=== PATIENT | male | born 1985 | race Caucasian/White ===

== ENCOUNTER 2021-04-05 00:30 | Emergency (ER) | payer SELFPAY ==
[2021-04-05 01:41] LABS: #Basophils 0.1 thou/uL (0.0-0.2); #Eosinphils 0.1 thou/uL (0.0-0.7); #Lymphocytes 2.8 thou/uL (1.20-3.40); #Monocytes 1.3 thou/uL (0.11-0.59); #Neutrophils 8.1 thou/uL (1.40-6.50); %Basophils 0.8 % (0.0-1.0); %Lymphocytes 22.5 % (21.0-51.0); %Monocytes 10.6 % (0.0-10.0); %Neutrophils 65.1 % (42.0-75.0); Hemoglobin 13.6 g/dL (14.0-18.0); Mean Corpuscular HGB CONC 32.6 g/dL (32.0-36.0); Mean Corpuscular Hemoglobin 28.9 pg (27.0-31.0); Mean Corpuscular Volume 88.7 fL (78.0-98.0); Mean Platelet Volume 6.9 fL (7.4-10.4); Platelet Count 358 thou/uL (130-400); Red Blood Cell (RBC) Count 4.71 mill/uL (4.70-6.10); White Blood Cell (WBC) Count 12.5 thou/uL (4.8-10.8)
[2021-04-05 01:59] LABS: ALT (SGPT) 24 U/L (8-55); AST (SGOT) 26 U/L (5-34); Albumin 4.6 g/dL (3.5-5.0); Alkaline Phosphatase 75 U/L (40-110); Anion Gap 17 mmol/L (10-20); BUN (Urea Nitrogen) 16 mg/dL (8.9-20.6); Bilirubin, Total 0.6 mg/dL (0.2-1.2); CK (CPK) 480 U/L (30-200); Calc. Creatinine Clearance 0 mL/min (70-130); Calcium 9.6 mg/dL (7.8-10.44); Carbon Dioxide 25 mmol/L (22-29); Chloride 103 mmol/L (98-107); Glucose 86 mg/dL (70-105); Lipase 28 U/L (8-78); Potassium 4.2 mmol/L (3.5-5.1); Protein, Total 7.6 g/dL (6.0-8.3); Sodium 141 mmol/L (136-145)
[2021-04-05] MEDS ORDERED: Ketorolac Tromethamine 30 MG/ML VIAL ONE (02:01)
[2021-04-05] MEDS ORDERED: Acetaminophen 500 MG TAB ONE (02:01)
[2021-04-05] MEDS ORDERED: Ondansetron ODT 4 MG TAB ONE (02:01)
== END 2021-04-05 03:26 | disposition home or self-care (01) ==
LOC: MADERS 00:30
DX: S93.602A Unspecified sprain of left foot, initial encounter (principal); R10.31 Right lower quadrant pain; R10.32 Left lower quadrant pain; F17.210 Nicotine dependence, cigarettes, uncomplicated
CPT/HCPCS: 36415; 80053; 82550; 83690; 85025; 96372; J1885; Q0162

== ENCOUNTER 2022-06-23 13:00 | Emergency (ER) | payer SELFPAY ==
[~2022-06-23 13:00] MED LIST: Iopamidol 370 76% 100 ML VIAL ONE
[2022-06-23] MEDS ORDERED: Morphine 4 MG/ML VIAL ONE (14:03)
[2022-06-23] MEDS ORDERED: Ondansetron PF 4 MG/2 ML Vial ONE (14:04)
[2022-06-23 14:22] LABS: #Basophils 0.1 thou/uL (0.0-0.2); #Eosinphils 0.1 thou/uL (0.0-0.7); #Lymphocytes 2.1 thou/uL (1.20-3.40); #Neutrophils 5.6 thou/uL (1.40-6.50); %Basophils 1.3 % (0.0-1.0); %Eosinophils 1.1 % (0.0-10.0); %Lymphocytes 23.3 % (21.0-51.0); %Monocytes 11.4 % (0.0-10.0); %Neutrophils 62.8 % (42.0-75.0); Hemoglobin 15.2 g/dL (14.0-18.0); Mean Corpuscular HGB CONC 31.8 g/dL (32.0-36.0); Mean Corpuscular Hemoglobin 29.3 pg (27.0-31.0); Mean Platelet Volume 9.4 fL (7.4-10.4); Platelet Count 264 10x3/uL (130-400); RBC Distribution Width 12.3 % (11.5-14.5); Red Blood Cell (RBC) Count 5.19 mill/uL (4.70-6.10)
[2022-06-23 14:38] LABS: Anion Gap 13 mmol/L (10-20); BUN (Urea Nitrogen) 8 mg/dL (8.9-20.6); CRP (Inflammatory) 7.47 mg/dL (= or < 0.5); Calc. Creatinine Clearance 0 mL/min (70-130); Calcium 9.6 mg/dL (7.8-10.44); Carbon Dioxide 27 mmol/L (22-29); Chloride 100 mmol/L (98-107); Estimated GFR 115; Glucose 96 mg/dL (70-105); Potassium 3.6 mmol/L (3.5-5.1); Sodium 136 mmol/L (136-145)
[2022-06-23] MEDS ORDERED: Sodium Chloride 0.9% 100 ML ONE (16:08)
[2022-06-23] MEDS ORDERED: Ampicillin/Sulbactam 3 GM VIAL ONE (16:08)
[2022-06-23] MEDS ORDERED: Lidocaine 1% w/Epinephrine 1:100K 20 ML VIAL ONE (16:08)
[2022-06-23] MEDS ORDERED: Lidocaine 1% (PF) 30 ML VIAL ONE (16:09)
== END 2022-06-23 16:58 | disposition home or self-care (01) ==
LOC: MADERS 13:00
DX: K04.7 Periapical abscess without sinus (principal); K02.9 Dental caries, unspecified; F17.210 Nicotine dependence, cigarettes, uncomplicated
CPT/HCPCS: 70487; 80048; 83605; 85025; 86140; 96365; 96375; J0295; J2001; J2270; J2405; Q9967

== ENCOUNTER 2022-08-20 17:48 | Emergency (ER) | payer SELFPAY ==
[2022-08-20] MEDS ORDERED: Ibuprofen 800 MG TAB ONE (17:56)
== END 2022-08-20 18:03 | disposition home or self-care (01) ==
LOC: MADERS 17:48
DX: S01.01XA Laceration without foreign body of scalp, initial encounter (principal); F17.210 Nicotine dependence, cigarettes, uncomplicated; W22.8XXA Striking against or struck by other objects, initial encounter
CPT/HCPCS: 12001